=== PATIENT | female | born 1970 | race Caucasian/White ===

== ENCOUNTER 2023-08-17 12:34 | Inpatient (IN) | payer MEDICARE, MEDICAID, SELFPAY ==
[2023-08-17 08:20] VITALS: BP 135/77
--- NOTE | 2023-08-17 08:45 | ED.GENMED ---
History of Present Illness
General
Chief Complaint: Cough
Source: patient
Exam Limitations: none
Time Seen by Provider: 08/17/23 08:36
Travel History
Have you had any contact with someone who has COVID-19?: No
Do you have any symptoms of coronavirus? Fever > 100 degrees, chills, cough, shortness of breath, sore throat, loss of taste or smell, muscle aches, or headache?: No
History of Present Illness
History of Present Illness:
See MDM
Past History
Past History
ED Past Medical History: Other (COPD)
ED Past Surgical History: Orthopedic
Social History
Tobacco: Smoker
Alcohol: None
Phy Exam
Physical Exam
Physical Exam:
See MDM
Course
Orders/Labs/Results
Orders:
Orders
08/17/23 08:25
Electrocardiogram (*1) Urgent
Reason for Study: Shortness of Breath
EKG- Treatment ONCE
08/17/23 08:40
Albuterol Sulfate [Ventolin Nebules] 7.5 mg INH R NOW STA
Dexamethasone Sod Phosphate [Decadron] 10 mg IV NOW STA
Ipratropium Nebs [Atrovent Nebules] 1 mg INH R NOW STA
CR Chest - 2 Views Urgent
Comment:
Reason For Exam: SOB, COPD
08/17/23 08:57
Complete Blood Count/With Diff Urgent
Comprehensive Metabolic Panel Urgent
NT-proBNP Urgent
Troponin I Urgent
08/17/23 10:48
Piperacillin/Tazo 3.375 Gram [Zosyn] 3.375 gram in 50 ml IV NOW
Vancomycin [Vancocin] 1,500 mg 0.9% Sodium Chloride [Nss] 20 ml 0.9% Sodium Chloride 250 ml [Nss] 250 ml IV NOW
08/17/23 11:00
Blood Culture Q30M
MANUEL Source: Blood/Venous
Specimen Description:
08/17/23 11:30
Blood Culture Q30M
MANUEL Source: Blood/Venous
Specimen Description:
Abnormal Lab Results
08/17/23
08:57
RBC 3.88 L 10^6/uL
(4.20-5.40)
Hgb 11.1 L g/dL
(12.0-16.0)
Hct 33.6 L %
(37.0-47.0)
RDW 15.3 H %
(11.5-14.5)
Abs Immat Gran (auto) 0.1 H 10^3/uL
(0-0.05)
Absolute Eos (auto) 1.0 H 10^3/uL
(0-0.7)
Immature Gran % 0.8 H %
(0-0.5)
Eosinophils % 16.4 H %
(0-6)
BUN 27 H mg/dl
(7-17)
Creatinine 1.1 H mg/dL
(0.6-1.0)
Glucose 105 H mg/dl
(70-99)
08/17/23 08:57
08/17/23 08:57
Vital Signs
Initial and Last Documented VS:
Initial Vital Signs
Temp Pulse Resp BP Pulse Ox
98.4 F 87 18 135/77 94
08/17/23 08:20 08/17/23 08:20 08/17/23 08:20 08/17/23 08:20 08/17/23 08:20
Last Documented Vital Signs
Temp Pulse Resp BP Pulse Ox
98.4 F 96 18 117/82 91
08/17/23 08:20 08/17/23 10:38 08/17/23 08:20 08/17/23 10:38 08/17/23 10:38
MDM/Problems Addressed
Differential Diagnosis Includes:
HPI and MDM Narrative:
53-year-old female presenting with shortness of breath and cough. This been ongoing for the past 3 weeks. She does have a history of COPD and continues to smoke. Patient states minimal exertion causes wheezing. She has been taking her son's
azithromycin with no relief.
On exam, patient has audible wheezing throughout. Will start hour-long nebulizer treatment and start IV steroids. Will obtain chest
Physical exam
General: Mildly uncomfortable
HEENT: protecting airway
Neck: appears supple
CV: No evidence of cyanosis. Regular rate and rhythm
Resp: No accessory muscle use. Significant expiratory wheezing throughout
Abd: Non-distended
Extremities: No deformities. No leg edema
Neuro: alert
Psych: Normal affect
Skin: Intact
Problems Addressed including Acute and Chronic Conditions affecting care:
1. COPD exacerbation
Acuity: acute
Prognosis: unstable
Details: Patient requiring hour-long nebulizer treatment and IV steroids.
2. pna
Acuity: acute
Prognosis: unstable
Details: Patient started on vancomycin and Zosyn given azithromycin failure
Updates
Patient still symptomatic after hour-long neb. Chest x-ray concerning for right lower lobe pneumonia. Given persistent symptoms and failure of azithromycin, will start IV antibiotics and admit
Differential Diagnosis (but not limited to): COPD, viral syndrome, pneumonia
Testing considered: D-dimer but no clinical signs of DVT
Drug therapy (if applicable): OTC meds, please see d/c instruction regarding Rx drugs
Amount and/or Complexity of Data Reviewed
Clinical info obtained from: Patient
External data reviewed: N/A
Labs I independently reviewed (but not limited to): Troponin and BNP
Radiology: X-ray independently reviewed: Right lower lobe pneumonia
Pulse Ox: hypoxic
EKG independently reviewed: Sinus rhythm, normal axis, no STEMI
Education Professional: N/A
Critical Care: the high probability of a clinically significant, sudden or life threatening deterioration of the Pulmonary system(s) required my full and direct attention, intervention and personal management. The aggregate critical care time was
33 minutes. This time is in addition to time spent performing reported procedures but includes the following:
[x] Data Review and interpretation
[x] Patient assessment and monitoring of vital signs
[x] Documentation
[x] Medication orders and management
Risk of Complication:
Social Determinants of health: Good social support
Discussed with other providers: Hospitalist
Escalation of Care includes Admit/Obs: Given COPD exacerbation and pneumonia, will admit
Occasional wrong word or 'sound a like' substitutions may have occurred due to the inherent limitations of voice recognition software. Read the chart carefully and recognize, using context, where substitutions have occurred.
*Critical Care Note
Total Time (30-74mins, 75-104mins- exclusive of procedures): 33 min
ED Attending Note
-
Portions of this chart may have been created with voice recognition software.� Occasional wrong word or��sound alike� substitutions may have occurred due to the inherent limitations of voice recognition software.
Discharge Plan
Departure
Patient Disposition: Admit
Date of Disposition: 08/17/23
Time of Disposition: 10:50
Admit to: Med/Surg
Presentation/result/management discussed w/ accepting MD/DO: Hospitalist
Discharge Problem:
COPD exacerbation, PNA (pneumonia), Hypoxia
Interventions
Interventions:
*Risk Screen - Suicide Last Done: 08/17/23 08:51
*General Assessment Last Done: 08/17/23 08:51
*Neglect/Abuse Screening Last Done: 08/17/23 08:51
ED- Fall Risk Assessment Last Done: 08/17/23 08:51
*ED COVID-19 Vaccine History Last Done: 08/17/23 08:21
ED- Pulmonary Assessment Last Done: 08/17/23 08:51
Discharge Date and Time
Print Language: GUATEMALAN
[2023-08-17] MEDS: VENTOLIN NEBULES 7.5 MG INH (09:02)
[2023-08-17] MEDS: ATROVENT NEBULES 1 MG INH (09:02)
[2023-08-17] MEDS: DECADRON 10 MG IV (09:02)
[2023-08-17 09:08] LABS: % Basophils 0.8 % (0-2); % Eosinophils 16.4 % (0-6); % Immature Granulocytes 0.8 % (0-0.5); % Lymphocytes 30.9 % (20.5-51.1); % Neutrophils 44.1 % (42.2-75.2); Absolute Basophils 0.1 10^3/uL (0-0.2); Absolute Immature Granulocytes 0.1 10^3/uL (0-0.05); Absolute Lymphocytes 1.9 10^3/uL (1.2-3.4); Absolute Monocytes 0.4 10^3/uL (0.1-0.6); Absolute Neutrophils 2.8 10^3/uL (1.4-6.5); Hematocrit 33.6 % (37.0-47.0); Hemoglobin 11.1 g/dL (12.0-16.0); Mean Corpuscular Hgb 28.6 pg (27.0-31.0); Mean Corpuscular Volume 86.6 fL (81.0-99.0); Mean Platelet Volume 10.4 fL (7.4-10.4); Nucleated Red Blood Cells % 0 %; Platelet Count 188 10^3/uL (130-400); Red Blood Cell Count 3.88 10^6/uL (4.20-5.40); Red Cell Dist. Width 15.3 % (11.5-14.5); White Blood Cell Count 6.3 10^3/uL (4.8-10.8)
[2023-08-17 09:26] LABS: NT-proBNP 514 pg/ml; Troponin I < 0.012 ng/ml
[2023-08-17 09:37] LABS: ALT (SGPT) 18 U/L (0-35); AST (SGOT) 24 U/L (14-36); Albumin 3.6 g/dl (3.5-5.0); Alkaline Phosphatase 99 U/L (38-126); Blood Urea Nitrogen 27 mg/dl (7-17); Carbon Dioxide 26 mmol/L (22-30); Chloride 104 mmol/L (98-107); Glucose 105 mg/dl (70-99); Potassium 3.7 mmol/L (3.5-5.1); Sodium 140 mmol/L (135-145); Total Bilirubin 0.4 mg/dl (0.2-1.3); Total Protein 6.3 g/dl (6.3-8.2); eGFR > 60.00
[2023-08-17 10:38] VITALS: BP 117/82
[2023-08-17] MEDS: ZOSYN 50 IV (10:57)
[2023-08-17] MEDS: VANCOCIN 300 MG IV (11:40)
[2023-08-17] MEDS: VANCOCIN 300 ML IV (11:40)
--- NOTE | 2023-08-17 11:53 | HPS.HSE ---
Family Physician
-
Family Physician: * NONE
Chief Complaint
-
SOBx3 weeks
History of Present Illness
53 y/o F, hx of COPD not on O2, hx of CKD 4, Anxiety/Depression, chronic pain, allergies presents to ER for SOB x 3 weeks. Patient reports cough, progressive over 3 weeks. Sputum output is increasing but remains clear; she is taking Mucinex. She
reports in the past few days worsening SOB, fever/chills. No chest pain. No GI complaints. Her son takes Azithromycin; she took a few doses without relief.
She currently smokes, down to 1 pack/weekly from 2 packs daily at her peak.
In ER, given nebs, IV Abx and admitted.
Medical History
Past Medical History
Past Medical History: Reports Other (COPD not on O2, hx of CKD 4, Anxiety/Depression, chronic pain, allergies )
Past Surgical History: Reports None
Social History
Tobacco: Smoker
Alcohol: None
Drug: None
Living: With Family
Family History
Family History: Not pertinent
Allergies / Home Medications
Allergies reflects when Allergies were last updated in [employer].
Home Medications with original date entered in [employer]
Allergy/Medication List:
Allergies
Allergy/AdvReac Type Severity Reaction Status Date / Time
egg Allergy Unknown Verified 08/17/23 08:25
Home Medications
albuterol sulfate 90 mcg/actuation aerosol inhaler (ProAir HFA) 2 puff inhalation R Q6HPRN PRN sob 08/17/23
cyclobenzaprine 10 mg tablet 10 mg PO DAILYPRN PRN spasms 08/17/23
escitalopram oxalate 20 mg tablet (Lexapro) 20 mg PO DAILY Mental Health 08/17/23
famotidine 20 mg tablet (Pepcid) 20 mg PO BID Gastrointestinal Issue 08/17/23
ferrous sulfate 325 mg (65 mg iron) tablet 325 mg PO DAILY Supplement 08/17/23
gabapentin 800 mg tablet 800 mg PO TID Pain 08/17/23
hydrochlorothiazide 12.5 mg tablet 12.5 mg PO DAILY Blood Pressure 08/17/23
levocetirizine 5 mg tablet 5 mg PO HS Allergies 08/17/23
montelukast 10 mg tablet (Singulair) 10 mg PO HS ASTHMA 08/17/23
valproic acid 250 mg capsule,delayed release 250 mg PO TID Neurological Condition 08/17/23
Review of Systems
-
A 12 point ROS was completed and negative except as noted: Yes
Physical Exam
Vital Signs
Vital Signs
Temp Pulse Resp BP Pulse Ox
98.4 F 96 18 117/82 91
08/17/23 08:20 08/17/23 10:38 08/17/23 08:20 08/17/23 10:38 08/17/23 10:38
Physical Exam
General: Well Developed and Well Nourished
HEENT: NormoCephalic and Anicteric
Respiratory: Wheezes and Decreased Breath Sounds; No Accessory Resp Muscle Use
Cardiac: S1/S2 and Regular Rhythm
GI: Soft and Non Tender
Neuro: AO x 3
Hematologic/Lymphatic: No Lymphadenopathy
Psych: Calm
Laboratory Results
-
08/17/23 08:57
08/17/23 08:57
Laboratory Results
Total Bilirubin 0.4 mg/dl (0.2-1.3) 08/17/23 08:57
AST 24 U/L (14-36) 08/17/23 08:57
ALT 18 U/L (0-35) 08/17/23 08:57
Alkaline Phosphatase 99 U/L (38-126) 08/17/23 08:57
Troponin I < 0.012 ng/ml 08/17/23 08:57
Data Reviewed
-
Diagnostic Radiology: Report Reviewed by me and Discussed with Patient
Lab Data: Labs Reviewed by me and Discussed with Patient
Impression/Plan
-
Assessment:
RLL PNA with small effusion
Hx of COPD with acute COPD exacerbation, not on O2
- community acquired, unknown organisms
- s/p Vanc/Zosyn in ER
- start Rocephin, Doxy, day 1
- start Decadron 4mg q8h
- scheduled and prn nebs
- mucolytics, IS, Acapella
- monitor O2 needs; currently not requiring
Hx of GERD - continue H2 luis enrique
Anxiety/Depression
- continue Lexapro/Valproic acid
CKD stage 4
- OP Nephrology follow up in [place] where she lives
Essential HTN - continue HCTZ
Seasonal allergies
Chronic pain syndrome
- continue Gabapentin TID and Flexeril prn
DVT ppx: SC Heparin
Code: Full
[2023-08-17 13:09] VITALS: BP 121/89
[2023-08-17 14:18] VITALS: BP 113/76; BMI 21.8
[2023-08-17] MEDS: NICODERM TRANSDERMAL 14 MG TRANSDERM (15:09)
[2023-08-17] MEDS: DEPAKOTE (12 HR RELEASE) 250 MG PO ×2 (15:09→22:00)
[2023-08-17] MEDS: NEURONTIN 800 MG PO ×2 (15:10→22:01)
[2023-08-17] MEDS: ROCEPHIN 1000 MG IV (15:13)
[2023-08-17] MEDS: STERILE WATER FOR INJECTION 10 ML IV (15:13)
[2023-08-17] MEDS: DECADRON 4 MG IV ×2 (15:13→23:08)
--- NOTE | 2023-08-17 15:18 | PTCARENOTE ---
pt admitted from the ED this afternoon to 2N by this nurse. Pt aaox3, VSS came in for sob and increased cough. pt negative for covid but positive for PNA with hx of COPD. pt states she had a fall out of bed about a week ago but other than that has
not had any falls in the past. pt has full dentures on top and states she has no trouble with swallowing but has gained 20lbs in the last two months. pt IV site is in the R wrist and she received IV rocephin and decadron this afternoon. See MAR for
proper charting. MRSA swab sent on this pt for hx of MRSA. pt states that she just moved back from [place] and her and her partner have been living in a hotel. pt has two bracelets on her R wrist and one on her Left.
[2023-08-17 15:47] VITALS: BP 128/75
[2023-08-17] MEDS: DUONEB 3 ML INH ×2 (16:11→20:25)
[2023-08-17] MEDS: HEPARIN 5000 UNITS SC (20:11)
[2023-08-17] MEDS: ATIVAN 0.5 MG PO (20:12)
[2023-08-17] MEDS: PEPCID 20 MG PO (20:12)
[2023-08-17] MEDS: MUCINEX 1200 MG PO (20:12)
[2023-08-17] MEDS: VIBRAMYCIN 100 MG PO (20:13)
--- NOTE | 2023-08-17 21:15 | PTCARENOTE ---
Pt c/o anxiety to [facility], hospitalist contacted via [facility] text, order for one time dose 0.5mg PO Ativan obtained and given, see MAR. Pt reports she takes Xanax 1mg as needed at home, medication not listed on pt's home medication list. Pt states
she gave a prescription bottle of Xanax to 'someone from the pharmacy' while she was in the ED. Call placed to pharmacy, no medication bottles belonging to pt located in the pharmacy safe. Pharmacy did a search in the PDMP data base, no
prescription for Xanax was found for this pt.
[2023-08-17] MEDS: SINGULAIR 10 MG PO (22:00)
[2023-08-17] MEDS: ZYRTEC 10 MG PO (22:01)
[2023-08-17 23:24] VITALS: BP 128/73
[2023-08-18 06:11] LABS: Hematocrit 31.8 % (37.0-47.0); Hemoglobin 10.5 g/dL (12.0-16.0); Mean Corpuscular Hgb 28.4 pg (27.0-31.0); Mean Corpuscular Volume 85.9 fL (81.0-99.0); Mean Platelet Volume 10.9 fL (7.4-10.4); Platelet Count 210 10^3/uL (130-400); Red Cell Dist. Width 15.3 % (11.5-14.5); White Blood Cell Count 12.1 10^3/uL (4.8-10.8)
[2023-08-18 06:46] LABS: Blood Urea Nitrogen 30 mg/dl (7-17); Calcium 9.8 mg/dl (8.4-10.2); Carbon Dioxide 24 mmol/L (22-30); Chloride 107 mmol/L (98-107); Estimated Creatinine Clearance 53 ml/min; Glucose 218 mg/dl (70-99); Sodium 139 mmol/L (135-145); eGFR 54.13
[2023-08-18 07:25] VITALS: BP 127/90
[2023-08-18] MEDS: DUONEB 3 ML INH ×4 (07:25→20:22)
[2023-08-18] MEDS: NEURONTIN 800 MG PO ×3 (10:00→20:55)
[2023-08-18] MEDS: MUCINEX 1200 MG PO ×2 (10:00→20:54)
[2023-08-18] MEDS: DEPAKOTE (12 HR RELEASE) 250 MG PO ×3 (10:01→21:57)
[2023-08-18] MEDS: FEOSOL 325 MG PO (10:01)
[2023-08-18] MEDS: NICODERM TRANSDERMAL 14 MG TRANSDERM (10:01)
[2023-08-18] MEDS: VIBRAMYCIN 100 MG PO ×2 (10:01→20:54)
[2023-08-18] MEDS: LEXAPRO 20 MG PO (10:01)
[2023-08-18] MEDS: DECADRON 4 MG IV ×2 (10:01→15:36)
[2023-08-18] MEDS: PEPCID 20 MG PO ×2 (10:01→20:54)
[2023-08-18] MEDS: ORETIC 12.5 MG PO (10:01)
[2023-08-18] MEDS: HEPARIN 5000 UNITS SC ×2 (10:02→20:54)
--- NOTE | 2023-08-18 10:28 | CM ---
Initial assessment completed with patient who lives in [place]. Currently she is living in [place] [address] in [place] in a 2nd floor room, approximately 10 steps to the 2nd floor. She is in [place] visiting her sons. She has [place] Medicaid and therefore
questionable coverage in [place] for medications. No pharmacy in [place] but would use [facility] in [place]. No PCP. She was independent [employer] and drove. No in-home services and no DME. Patient has a history of anxiety and depression for which she sees a
psychiatrist monthly. She uses Xanax 1 mg as needed for anxiety. She usually takes up to 2 tabs daily. ANTICIPATE NO NEEDS.
--- NOTE | 2023-08-18 11:17 | W.PN.HOSP.TC ---
Today's Communication/Plan
-
continue IV steroids, IV Abx
monitor sugars, use SSI
start home Xanax for anxiety
Assessment / Plan
Assessment / Plan
Assessment:
RLL PNA with small effusion
Hx of COPD with acute COPD exacerbation, not on O2
- community acquired, unknown organisms
- s/p Vanc/Zosyn in ER
- continue Rocephin, Doxy, day 2
- continue Decadron 4mg q8h; monitor sugars (see below)
- scheduled and prn nebs
- mucolytics, IS, Acapella
- monitor O2 needs; currently not requiring
Hyperglycemia from IV steroids
- low carb diet - d/w patient
- SSI for now; A1c pending
Hx of GERD - continue H2 luis enrique
Anxiety/Depression
- continue Lexapro/Valproic acid
- on Xanax TID - written from [place] psychologist (lives in [place]), continue to here
CKD stage 4
- OP Nephrology follow up in [place] where she lives
Essential HTN - continue HCTZ
Seasonal allergies
Chronic pain syndrome
- continue Gabapentin TID and Flexeril prn
DVT ppx: SC Heparin
Code: Full
Anticipated Discharge: 24 - 48 hours
Subjective/Interval History
-
Date of Service: August 18, 2023
reports breathing slowly improving
denies SOB of fevers
cough improving
Objective Data
-
Labs:
Laboratory Results
08/18/23
04:57
WBC 12.1 H
Hgb 10.5 L
Hct 31.8 L
Plt Count 210
Sodium 139
Potassium 4.0
Chloride 107
Carbon Dioxide 24
BUN 30 H
Creatinine 1.2 H
Glucose 218 H
Calcium 9.8
Vital Signs:
Vital Signs
Temp Pulse Resp BP Pulse Ox
97.8 F 101 16 127/90 95
08/18/23 07:25 08/18/23 07:43 08/18/23 07:43 08/18/23 07:25 08/18/23 07:43
I&O
08/17/23 08/18/23 08/19/23
06:59 06:59 06:59
Intake Total 600 / 600
Balance 600 / 600
Physical Exam
-
General: No Apparent Distress
HEENT: Normocephalic and Atraumatic
Respiratory: Wheezes and Rhonchi; Negative Rales
Cardiac: Regular Rhythm and S1/S2
GI: Soft and Nontender
Genito-urinary: No Costovertebral Tender
Neuro: AO x 3
Hematologic / Lymphatic: No Lymphadenopathy
Psych: Calm
Data Reviewed
-
Total Time Spent with Patient (in minutes): 42
Labs: Labs Reviewed by me
[2023-08-18] MEDS: XANAX 1 MG PO ×3 (11:48→21:57)
[2023-08-18 12:14] LABS: Glucose - Point of Care 218 mg/dl (70-99)
[2023-08-18] MEDS: NOVOLOG FLEXPEN-LOW RESISTANCE 2 UNITS SC (15:36)
[2023-08-18] MEDS: ROCEPHIN 1000 MG IV (15:41)
[2023-08-18] MEDS: STERILE WATER FOR INJECTION 10 ML IV (15:41)
[2023-08-18 15:59] VITALS: BP 108/76
[2023-08-18 16:47] LABS: Glucose - Point of Care 286 mg/dl (70-99)
[2023-08-18] MEDS: NOVOLOG FLEXPEN-LOW RESISTANCE 3 UNITS SC (17:32)
--- NOTE | 2023-08-18 17:50 | PTCARENOTE ---
pt in heated conversation with son and ex at bedside. nurse went in to assess situation. pt tearful stating her partner at the hotel is going to throw away her belongings. pt and her partner have hx of drug abuse per ex and this is
the first time they are seeing her in two years. pt attempted to give this nurse a urine sample this afternoon, this nurse explained again we just need a sputum sample. pt now understands.
[2023-08-18] MEDS: ZYRTEC 10 MG PO (21:57)
[2023-08-18] MEDS: SINGULAIR 10 MG PO (21:57)
[2023-08-18 22:02] LABS: Glucose - Point of Care 235 mg/dl (70-99)
[2023-08-18 23:15] VITALS: BP 116/77
[2023-08-19] MEDS: DECADRON 4 MG IV ×3 (00:27→16:14)
[2023-08-19 05:00] LABS: Hemoglobin 10.5 g/dL (12.0-16.0); Mean Corp Hgb Conc. 31.8 g/dL (33.0-37.0); Mean Corpuscular Hgb 27.9 pg (27.0-31.0); Mean Corpuscular Volume 87.8 fL (81.0-99.0); Mean Platelet Volume 10.8 fL (7.4-10.4); Platelet Count 214 10^3/uL (130-400); Red Blood Cell Count 3.76 10^6/uL (4.20-5.40); Red Cell Dist. Width 15.6 % (11.5-14.5); White Blood Cell Count 11.8 10^3/uL (4.8-10.8)
[2023-08-19 05:25] LABS: Blood Urea Nitrogen 35 mg/dl (7-17); Calcium 10.1 mg/dl (8.4-10.2); Carbon Dioxide 27 mmol/L (22-30); Chloride 103 mmol/L (98-107); Estimated Creatinine Clearance 53 ml/min; Glucose 179 mg/dl (70-99); Potassium 4.3 mmol/L (3.5-5.1); Sodium 140 mmol/L (135-145); eGFR 54.13
[2023-08-19 07:00] VITALS: BP 132/87
[2023-08-19] MEDS: DUONEB 3 ML INH ×4 (07:27→18:10)
[2023-08-19 07:54] LABS: Glucose - Point of Care 185 mg/dl (70-99)
[2023-08-19 08:19] LABS: Glycohemoglobin (HgbA1c) 5.4 % (4.0-5.6)
[2023-08-19] MEDS: DEPAKOTE (12 HR RELEASE) 250 MG PO ×3 (08:36→21:32)
[2023-08-19] MEDS: MUCINEX 1200 MG PO ×2 (08:36→20:15)
[2023-08-19] MEDS: ORETIC 12.5 MG PO (08:36)
[2023-08-19] MEDS: LEXAPRO 20 MG PO (08:36)
[2023-08-19] MEDS: NEURONTIN 800 MG PO ×3 (08:36→21:32)
[2023-08-19] MEDS: PEPCID 20 MG PO ×2 (08:36→20:15)
[2023-08-19] MEDS: VIBRAMYCIN 100 MG PO ×2 (08:36→20:15)
[2023-08-19] MEDS: XANAX 1 MG PO ×3 (08:37→21:32)
[2023-08-19] MEDS: FEOSOL 325 MG PO (08:37)
[2023-08-19] MEDS: NICODERM TRANSDERMAL 14 MG TRANSDERM (08:37)
[2023-08-19] MEDS: NOVOLOG FLEXPEN-LOW RESISTANCE 1 UNITS SC ×2 (08:38→16:26)
[2023-08-19] MEDS: HEPARIN 5000 UNITS SC ×2 (08:38→20:15)
[2023-08-19 11:42] LABS: Glucose - Point of Care 132 mg/dl (70-99)
[2023-08-19] MEDS: NOVOLOG FLEXPEN-LOW RESISTANCE SC (11:46)
[2023-08-19] MEDS: ROCEPHIN 1000 MG IV (13:43)
[2023-08-19] MEDS: STERILE WATER FOR INJECTION 10 ML IV (13:44)
[2023-08-19 15:00] VITALS: BP 130/88
[2023-08-19 16:25] LABS: Glucose - Point of Care 168 mg/dl (70-99)
--- NOTE | 2023-08-19 16:31 | CM ---
IV steroids and IV/AB. Patient and boyfriend up from [place] and staying in [facility]. Boyfriend ended relationship yesterday and patient's son picked up her possessions from [facility]. Questionable if patient will have housing after discharge. May need
skilled nursing services.
--- NOTE | 2023-08-19 17:05 | W.PN.HOSP.TC ---
Today's Communication/Plan
-
likely dc in 24 hours
Assessment / Plan
Assessment / Plan
Assessment:
RLL PNA with small effusion
Hx of COPD with acute COPD exacerbation, not on O2
- community acquired, unknown organisms
- s/p Vanc/Zosyn in ER
- continue Rocephin, Doxy, day 3
- continue Decadron , decrease to q12h - transition to PO tomorrow
- scheduled and prn nebs
- mucolytics, IS, Acapella
- monitor O2 needs; currently not requiring
Hyperglycemia from IV steroids
- low carb diet - d/w patient
- SSI for now; A1c 5.4%
Hx of GERD - continue H2 luis enrique
Anxiety/Depression
- continue Lexapro/Valproic acid
- on Xanax TID - written from [place] psychologist (lives in [place]), continue to here
CKD stage 4
- OP Nephrology follow up in [place] where she lives
Essential HTN - continue HCTZ
Seasonal allergies
Chronic pain syndrome
- continue Gabapentin TID and Flexeril prn
DVT ppx: SC Heparin
Code: Full
Anticipated Discharge: Within 24 hours
Subjective/Interval History
-
Date of Service: August 19, 2023
denies any new complaints but remains wheezing
states she will go to hotel at discharge with her son
Objective Data
-
Labs:
Laboratory Results
08/19/23
04:37
WBC 11.8 H
Hgb 10.5 L
Hct 33.0 L
Plt Count 214
Sodium 140
Potassium 4.3
Chloride 103
Carbon Dioxide 27
BUN 35 H
Creatinine 1.2 H
Glucose 179 H
Calcium 10.1
Vital Signs:
Vital Signs
Temp Pulse Resp BP Pulse Ox
97.3 F 71 14 130/88 96
08/19/23 15:00 08/19/23 15:40 08/19/23 15:40 08/19/23 15:00 08/19/23 15:40
I&O
08/18/23 08/19/23 08/20/23
06:59 06:59 06:59
Intake Total 600 / 600 1160 / 1160
Balance 600 / 600 1160 / 1160
Physical Exam
-
General: No Apparent Distress
HEENT: Normocephalic and Atraumatic
Respiratory: Wheezes; Negative Rales or Rhonchi
Cardiac: Regular Rhythm and S1/S2
GI: Soft
Genito-urinary: No Costovertebral Tender
Musculoskeletal: No Edema
Neuro: AO x 3
Hematologic / Lymphatic: No Lymphadenopathy
Psych: Calm
Data Reviewed
-
Total Time Spent with Patient (in minutes): 45
Labs: Labs Reviewed by me
[2023-08-19] MEDS: ZYRTEC 10 MG PO (21:32)
[2023-08-19] MEDS: SINGULAIR 10 MG PO (21:32)
[2023-08-19 21:51] LABS: Glucose - Point of Care 253 mg/dl (70-99)
[2023-08-19 23:12] VITALS: BP 124/82
[2023-08-20] MEDS: DECADRON 4 MG IV (04:34)
[2023-08-20 07:33] LABS: Glucose - Point of Care 134 mg/dl (70-99)
[2023-08-20] MEDS: NOVOLOG FLEXPEN-LOW RESISTANCE SC ×2 (07:47→11:30)
[2023-08-20] MEDS: DUONEB 3 ML INH ×2 (07:53→11:41)
[2023-08-20 08:06] VITALS: BP 129/79
[2023-08-20] MEDS: PEPCID 20 MG PO (08:11)
[2023-08-20] MEDS: ORETIC 12.5 MG PO (08:11)
[2023-08-20] MEDS: XANAX 1 MG PO (08:11)
[2023-08-20] MEDS: VIBRAMYCIN 100 MG PO (08:11)
[2023-08-20] MEDS: DEPAKOTE (12 HR RELEASE) 250 MG PO (08:11)
[2023-08-20] MEDS: MUCINEX 1200 MG PO (08:11)
[2023-08-20] MEDS: FEOSOL 325 MG PO (08:12)
[2023-08-20] MEDS: NEURONTIN 800 MG PO (08:12)
[2023-08-20] MEDS: HEPARIN 5000 UNITS SC (08:12)
[2023-08-20] MEDS: LEXAPRO 20 MG PO (08:12)
[2023-08-20] MEDS: NICODERM TRANSDERMAL 14 MG TRANSDERM (08:14)
[2023-08-20 09:04] LABS: Hematocrit 33.5 % (37.0-47.0); Hemoglobin 11.2 g/dL (12.0-16.0); Mean Corp Hgb Conc. 33.4 g/dL (33.0-37.0); Mean Corpuscular Hgb 29.1 pg (27.0-31.0); Mean Platelet Volume 10.6 fL (7.4-10.4); Platelet Count 215 10^3/uL (130-400); Red Blood Cell Count 3.85 10^6/uL (4.20-5.40); Red Cell Dist. Width 15.7 % (11.5-14.5); White Blood Cell Count 9.6 10^3/uL (4.8-10.8)
[2023-08-20 09:31] LABS: Blood Urea Nitrogen 37 mg/dl (7-17); Calcium 10.2 mg/dl (8.4-10.2); Carbon Dioxide 26 mmol/L (22-30); Chloride 108 mmol/L (98-107); Estimated Creatinine Clearance 53 ml/min; Glucose 121 mg/dl (70-99); Potassium 4.3 mmol/L (3.5-5.1); Sodium 139 mmol/L (135-145); eGFR 54.13
--- NOTE | 2023-08-20 12:37 | W.PN.HOSP.TC ---
Today's Communication/Plan
-
dc to home
Assessment / Plan
Assessment / Plan
Assessment:
RLL PNA with small effusion
Hx of COPD with acute COPD exacerbation, not on O2
- community acquired, unknown organisms
- s/p Vanc/Zosyn in ER
- continue Rocephin, Doxy, day 4/7 - switch to orals at discharge
- dc on prednisone taper x 7 more days
- scheduled and prn nebs
- mucolytics, IS, Acapella
Hyperglycemia from IV steroids
- low carb diet - d/w patient
- SSI for now; A1c 5.4%
Hx of GERD - continue H2 luis enrique
Anxiety/Depression
- continue Lexapro/Valproic acid
- on Xanax TID - written from [place] psychologist (lives in [place]), continue to here
CKD stage 4
- OP Nephrology follow up in [place] where she lives
Essential HTN - continue HCTZ
Seasonal allergies
Chronic pain syndrome
- continue Gabapentin TID and Flexeril prn
DVT ppx: SC Heparin
Code: Full
More than 30 minutes spent in discharge including
Final examination of the patient
Summarizing hospital stay
Instructions for continuing care to all relevant caregivers
Preparation of discharge records, prescriptions, and referral forms
Total time spent (in minutes):42
Anticipated Discharge: Today
Subjective/Interval History
-
Date of Service: August 20, 2023
denies any new complaints
Objective Data
-
Labs:
Laboratory Results
08/20/23
07:39
WBC 9.6
Hgb 11.2 L
Hct 33.5 L
Plt Count 215
Sodium 139
Potassium 4.3
Chloride 108 H
Carbon Dioxide 26
BUN 37 H
Creatinine 1.2 H
Glucose 121 H
Calcium 10.2
Vital Signs:
Vital Signs
Temp Pulse Resp BP Pulse Ox
97.6 F 90 16 129/79 94
08/20/23 08:06 08/20/23 11:44 08/20/23 11:44 08/20/23 08:06 08/20/23 11:44
I&O
08/19/23 08/20/23 08/21/23
06:59 06:59 06:59
Intake Total 1160 / 1160 480 / 480
Balance 1160 / 1160 480 / 480
Physical Exam
-
General: No Apparent Distress
HEENT: Normocephalic and Atraumatic
Respiratory: Negative Wheezes or Rales
Cardiac: Regular Rhythm and S1/S2
GI: Soft and Nontender
Musculoskeletal: No Edema
Neuro: AO x 3
Hematologic / Lymphatic: No Lymphadenopathy
Psych: Calm
Data Reviewed
-
Total Time Spent with Patient (in minutes): 42
Labs: Labs Reviewed by me
--- NOTE | 2023-08-20 12:44 | W.DS.TRANS ---
DC Summary - Patient Observation Assistant
-
Discharge Instructions:
Discharge Diagnosis/Procedures pneumonia and COPD exacerbation
Diet Diabetic, Carb Controlled
Activity As tolerated
Bathing Restrictions None
Instructions:
Stand-Alone Forms:
Changes to Home Medications: No
Discharge Medications:
DC Medications w/original date entered in [employer]
albuterol sulfate 90 mcg/actuation aerosol inhaler (ProAir HFA) 2 puff inhalation R Q6HPRN PRN sob 08/17/23
cyclobenzaprine 10 mg tablet 10 mg PO DAILYPRN PRN spasms 08/17/23
escitalopram oxalate 20 mg tablet (Lexapro) 20 mg PO DAILY Mental Health 08/17/23
famotidine 20 mg tablet (Pepcid) 20 mg PO BID Gastrointestinal Issue 08/17/23
ferrous sulfate 325 mg (65 mg iron) tablet 325 mg PO DAILY Supplement 08/17/23
gabapentin 800 mg tablet 800 mg PO TID Pain 08/17/23
hydrochlorothiazide 12.5 mg tablet 12.5 mg PO DAILY Blood Pressure 08/17/23
levocetirizine 5 mg tablet 5 mg PO HS Allergies 08/17/23
montelukast 10 mg tablet (Singulair) 10 mg PO HS ASTHMA 08/17/23
valproic acid 250 mg capsule,delayed release 250 mg PO TID Neurological Condition 08/17/23
alprazolam 1 mg tablet (Xanax) 1 mg PO TID anxiety 08/18/23
cefdinir 300 mg capsule 300 mg PO Q12H #8 caps 08/20/23
doxycycline hyclate 100 mg capsule 100 mg PO BID #8 caps 08/20/23
prednisone 10 mg tablet 10 mg PO DIRECTED #9 tabs 08/20/23
Home Medication Changes
Pending Results: No
Total time spent discharging patient (in min): 42
--- NOTE | 2023-08-20 13:30 | CM ---
CM reviewed pt with Dr Edwards- plan for dc today
Per attending- no dc needs, pt will return to [facility]
Discharge Disposition- home, no needs- family transport
[2023-08-20] MEDS: ROCEPHIN IV (14:10)
[2023-08-20] MEDS: STERILE WATER FOR INJECTION IV (14:11)
--- NOTE | 2023-08-20 14:11 | PTCARENOTE ---
Pt is discharged and discharge instructions given. Pt called boyfriend Deven to come and pick her up. will cont to monitor.
== END 2023-08-20 15:13 | disposition home or self-care (01) | DRG 190 ==
LOC: 2 NORTH 12:34
PROVIDERS: ADMITTING PHYSICIAN Internal Medicine; EMERGENCY PHYSICIAN Student in an Organized Health Care Education/Training Program
DX: J44.0 Chronic obstructive pulmonary disease with (acute) lower respiratory infection (principal); J18.9 Pneumonia, unspecified organism; N18.4 Chronic kidney disease, stage 4 (severe); J44.1 Chronic obstructive pulmonary disease with (acute) exacerbation; F17.210 Nicotine dependence, cigarettes, uncomplicated; F32.A Depression, unspecified; F41.9 Anxiety disorder, unspecified; I12.9 Hypertensive chronic kidney disease with stage 1 through stage 4 chronic kidney disease, or unspecified chronic kidney disease; K21.9 Gastro-esophageal reflux disease without esophagitis
CPT/HCPCS: 71046; 80048; 80053; 82962; 83036; 83880; 84484; 85025; 85027; 87040; 87070; 87077; 87186; 87205; 93005; 94640; 94644; 96365; 96367; 96375; 99291